=== PATIENT | female | born 1945 | race Caucasian/White ===

== ENCOUNTER 2017-12-22 16:38 | Observation (INO) ==
[2017-12-22] MEDS ORDERED: ONDANSETRON 4 MG/2 ML VIAL IV ONE (16:57)
[2017-12-22] MEDS ORDERED: PROMETHAZINE 25 MG/ML VIAL IV ONE (17:46)
[2017-12-22] MEDS ORDERED: 0.9 % SODIUM CHLORIDE 1,000 ML IV ONE ×2 (17:47→19:05)
--- NOTE | 2017-12-22 17:59 | Emergency Department Note ---
Nausea/Vomiting/Diarrhea HPI - General Chief complaint: Nausea/Vomiting/Diarrhea Stated complaint: vomiting x 2 weeks Time Seen by Provider: 12/22/17 16:49 Source: patient Mode of arrival: ambulatory Limitations: no limitations - History of Present Illness HPI Narrative: 72-year-old female who has had nausea vomiting for the last 2 weeks since her stitcher set up operator automatic put her on chlorthalidone and increased her lisinopril to 40 mg daily. Denies any fever but she has had low blood pressure. Was down to 70 systolic and so her PCP sent her to the ER. She does report losing weight and some shortness of breath. The shortness of breath is not really new though- history of asthma/COPD for which she sees Dr. Mckeon. She has been urinating however has not urinated today She has a significant GI history for which she sees Christy Yadav and Dr. Mccormack. Also rheumatoid history - Related Data Home Medications Medication Instructions Recorded Confirmed ibuprofen 800 mg tablet 800 mg PO PRN PRN tab 09/19/14 12/01/17 fexofenadine 180 mg tablet 180 mg PO QDAY 04/20/17 12/01/17 lisinopril 20 mg tablet 20 mg PO QDAY 04/28/17 12/01/17 Pantoprazole [Protonix] 40 mg PO QAMAC 06/02/17 12/01/17 Previous Rx's Medication Instructions Recorded levothyroxine 100 mcg tablet 100 mcg PO QDAY 90 Days #90 tab 09/25/14 Advair Diskus 250 mcg-50 mcg/dose 1 inh INHALATION Q12H #60 each NS 04/28/17 powder for inhalation albuterol sulfate HFA 90 2 puff INHALATION Q6H #18 g 04/28/17 mcg/actuation aerosol inhaler oxyCODONE HCL [Roxicodone] 5 mg PO Q4HP PRN #10 tab 10/17/17 Allergies Allergy/AdvReac Type Severity Reaction Status Date / Time acetaminophen Allergy Severe Anaphylaxis Verified 12/22/17 16:45 insulin detemir Allergy Intermediate rash Verified 12/22/17 16:45 [From Levemir] morphine Allergy Intermediate Vomiting Verified 12/22/17 16:45 Naloxone [From TALWIN NX] Allergy Intermediate Unknown Verified 12/22/17 16:45 pentazocine [From TALWIN NX] Allergy Intermediate Unknown Verified 12/22/17 16: 45 metformin AdvReac Severe Diarrhea Verified 12/22/17 16:45 methotrexate AdvReac Intermediate nausea Verified 12/22/17 16:45 From DEMEROL Allergy Severe Vomiting Uncoded 12/01/17 11:10 Review of Systems All systems ED: reviewed and negative except as stated. Past Medical History - Past Medical History Attestation: Yes: The following information was validated with the patient. [facility] Narrative: Medical History (Last Reviewed 12/01/17 @ 11:35 by Scott Galeana MD) Back pain (Acute) Polyarthralgia (Acute) Encounter for long-term (current) use of high-risk medication (Acute) Nocturnal hypoxia (Chronic) Poor compliance with medication (Chronic) Sinusitis (Chronic) Shortness of breath (Chronic) Cardiomegaly (Chronic) Hypothyroidism (Chronic) Seasonal allergies (Chronic) Cough (Acute) Iron deficiency anemia (Chronic) Dietary vitamin B12 deficiency anemia (Chronic) Fibromyalgia (Acute) Encounter for long-term (current) use of other high-risk medications (Chronic) Hypertension (Chronic) Hyperlipidemia (Chronic) Spinal stenosis (Chronic) Rheumatoid arthritis (Acute) Osteoporosis (Chronic) Osteoarthritis (Acute) Insomnia (Chronic) Acquired hypothyroidism (Chronic) Fatigue (Chronic) Type 2 diabetes mellitus (Chronic) Excessive daytime sleepiness (Chronic) Colon polyp (Chronic 01/12/12) Chronic obstructive pulmonary disease (Chronic) Asthma (Chronic) Acid reflux (Chronic) Abnormal esophagram (Chronic) Dysphagia (Chronic) Abscess of cellulitis of buttock (Inactive 03/26/14) Chest pain on exertion (Inactive) Chronic musculoskeletal pain (Inactive) Closed fracture of left lower leg (Inactive) Dysfunctional gallbladder (Inactive) Heart disease (Inactive) Hypoglycemia (Inactive) Necrosis, aseptic, of bone (Inactive) Stenosis of artery (Inactive) Tobacco use (Inactive) Past Surgical History (Last Reviewed 12/01/17 @ 11:35 by Scott Galeana MD) History of cholecystectomy (Chronic ~2001) History of esophagogastroduodenoscopy (EGD) (Chronic) History of hysterectomy (Chronic) History of left shoulder replacement (Chronic 07/18/09) History of orthopedic surgery (Chronic ~1995) History of right hip replacement (Chronic ~1996) History of shoulder surgery (Chronic ~2011) History of surgery (Chronic) History of surgery (Chronic ~10/2015) History of total right knee replacement (Chronic ~2004) S/P wrist surgery (Chronic) Status post left foot surgery (Chronic ~12/2016) History of carpal tunnel release (Inactive) History of cholecystectomy (Inactive) History of colonoscopy (Inactive) History of drainage of abscess (Inactive) History of esophagogastroduodenoscopy (Inactive) History of hysterectomy (Inactive) History of oophorectomy (Inactive) History of open reduction and internal fixation (ORIF) procedure (Inactive) History of right hip replacement (Inactive) History of right knee joint replacement (Inactive) History of shoulder surgery (Inactive) Family History (Last Reviewed 12/01/17 @ 11:35 by Scott Galeana MD) Grandmother Family history of arthritis Father Myocardial Infarction Hypertension Diabetes Mother Malignant neoplasm of ovary Uterine cancer Hypothyroidism Asthma Family/Other Celiac disease Thyroid disorder Daughter MVA (motor vehicle accident) Son Arthritis Grandson Drug addiction Medical history: Reports: DM Psychiatric history: Reports: no psych history LABORER HOISTING history: Reports: non-contributory Surgical history ED: Reports: non-contributory - Social History smoking status: Former smoker Physical Exam Overweight female no acute distress resting comfortably able to answer questions appropriately. Normocephalic atraumatic. Conjunctive are clear sclerae nonicteric. No nasal discharge or congestion. Oropharynx pink with dry buccal mucosa. Neck is supple without lymphadenopathy or thyromegaly. No carotid bruit. Heart is regular rate and rhythm no murmur appreciated. Lungs are clear to auscultation bilaterally without wheezes rales rhonchi or respiratory distress. Abdomen is soft nontender nondistended. No peritoneal signs or guarding. No pedal edema. +2 radial pulse. Alert oriented Limitations: no limitations Course Vital Signs Pulse Rate 70 12/22/17 16:39 Respiratory Rate 16 12/22/17 16:39 Blood Pressure 102/67 12/22/17 16:39 Pulse Oximetry (%) 94 12/22/17 16:39 Pulse Rate 64 12/22/17 17:26 Respiratory Rate 12 12/22/17 17:26 Blood Pressure 95/45 12/22/17 17:17 Pulse Oximetry (%) 97 12/22/17 17:26 Nausea/Vomiting/Diarrhea - Lab Data Lab results reviewed: Yes I reviewed the patient's lab results. Result diagrams: 12/22/17 17:05 12/22/17 17:05 Lab Results 12/22/17 12/22/17 Range/Units 17:05 17:05 WBC 9.7 (4.5-11.0) K/mcL RBC 4.60 (4.00-5.20) M/mcL Hgb 12.9 (12.0-15.0) g/dL Hct 39.1 (36.0-48.0) % POC Hct 43.0 (36.0-48.0) % MCV 84.9 (80.0-100.0) fL MCH 28.0 (26.0-34.0) pg MCHC 33.0 (31.0-36.0) g/dL RDW 15.2 H (11.5-14.5) % Plt Count 449 H (140-440) K/mcL MPV 8.7 (7.4-10.4) fL Gran % 58.8 (38.0-78.0) % Lymph % (Auto) 29.5 (15.5-49.0) % [place] % (Auto) 9.4 (1.0-12.0) % Eos % (Auto) 1.8 (0.0-7.0) % Baso % (Auto) 0.5 (0.0-2.0) % Gran # 5.7 (1.8-8.0) K/mcL Lymph # (Auto) 2.8 (1.5-4.8) K/mcL [place] # (Auto) 0.9 (0.1-0.9) K/mcL Eos # (Auto) 0.2 (0.0-0.7) K/mcL Baso # (Auto) 0.1 (0.0-0.3) K/mcL POC Sodium 135 (133-145) mmol/L Sodium 133 (133-145) mmol/L POC Potassium 4.1 (3.3-5.1) mmol/L Potassium 4.2 (3.3-5.1) mmol/L POC Chloride 99 (96-108) mmol/L Chloride 92 L (96-108) mmol/L Carbon Dioxide 20 L (22-30) mmol/L POC Total CO2 22 (22-30) mmol/L Anion Gap 21.0 H (8-16) POC BUN 47 H (8-23) mg/dl BUN 51 H (8-23) mg/dl Creatinine 2.8 H (0.6-1.1) mg/dl POC Creatinine 2.9 H (0.6-1.1) mg/dl GFR Calculation 16 Glucose 252 H (70-105) mg/dL POC Glucose 258 H (70-105) mg/dL Calcium 9.2 (8.6-10.4) mg/dl POC WB Ioniz Calcium 1.09 L (1.16-1.32) mmol/L Total Bilirubin 0.3 (0.0-1.0) mg/dL AST 16 (0-37) U/l ALT 14 (0-40) U/l Alkaline Phosphatase 108 (39-117) U/L Total Protein 7.7 (5.9-8.4) gm/dL Albumin 4.1 (3.2-5.2) gm/dL Globulin 3.6 (2.2-3.7) gm/dL Albumin/Globulin Ratio 1.1 (1.0-2.3) Urinalysis [id number] dipstick shows moderate leukocytes trace blood specific gravity 1.030 - Radiology Data Radiology results reviewed: Yes I reviewed the patient's radiology results. Bedside bladder scan showed 300 mL urine and patient was not feeling the need to urinate Abdominal x-ray shows nonspecific bowel gas pattern, negative for acute findings - EKG Data EKG attestation: Yes I reviewed and interpreted this EKG. EKG results narrative: EKG shows a rate of 65 sinus rhythm long MD or first-degree block. I do see a widened QRS in the inferior leads possible conduction delay Disposition Pt seen by SPINNING OPERATOR/PA only: No Clinical Impression: Drug-induced nausea and vomiting, Acute kidney injury, Dehydration Summary: Concern for drug-induced nausea vomiting with chlorthalidone. Ordered workup with laboratory and x-ray of the abdomen. Fluid started along with antiemetics POC labs show elevated creatinine (0.5 increased to 2.9 with anuria today) concern for increased lisinopril causing kidney injury in addition to prerenal causes. She continued to have nausea vomiting although just a small amount. Given dose of Phenergan Continued IV fluids. Urinalysis dipstick showed moderate leukocytes and increased concentration consistent with dehydration specific gravity 1.[address] Jitendra Zabala, hospitalist who agreed to evaluate the patient for admission Disposition: Xfer As Inpt ([facility]) Condition: Fair Referrals: Janina Soto ARNP [Primary Care Provider] -
--- NOTE | 2017-12-22 18:26 | XRay Report ---
CLINICAL INFORMATION: nausea and vomting COMPARISON: None. FINDINGS: There are scattered air-fluid levels within nondilated colon in the right midabdomen. Moderate stool present within the sigmoid. No free air or soft tissue mass. IMPRESSION: Nonspecific stool gas pattern most compatible with atypical ileus Interpreted and Authenticated by: Christopher Mishra 12/22/17
[2017-12-22 18:27] LABS: Basophils # (Auto) 0.1 K/mcL (0.0-0.3); Basophils % (Auto) 0.5 % (0.0-2.0); Eosinophils # (Auto) 0.2 K/mcL (0.0-0.7); Eosinophils % (Auto) 1.8 % (0.0-7.0); Granulocytes % (Auto) 58.8 % (38.0-78.0); Lymphocytes # (Auto) 2.8 K/mcL (1.5-4.8); Lymphocytes % (Auto) 29.5 % (15.5-49.0); Mean Cell Volume 84.9 fL (80.0-100.0); Monocytes # (Auto) 0.9 K/mcL (0.1-0.9); Monocytes % (Auto) 9.4 % (1.0-12.0); Platelet Count 449 K/mcL (140-440); Red Cell Distribution Width 15.2 % (11.5-14.5)
[2017-12-22 18:48] LABS: ALT/SGPT 14 U/l (0-40); Albumin 4.1 gm/dL (3.2-5.2); Albumin/Globulin Ratio 1.1 (1.0-2.3); Alkaline Phosphatase 108 U/L (39-117); Blood Urea Nitrogen 51 mg/dl (8-23)
[2017-12-22 20:01] LABS: Appearance,Urine CLOUDY; Bacteria,Urine FEW /hpf (0); Bilirubin,Urine NEG (NEG); Color,Urine YELLOW; Glucose,Urine (UA) NEGATIVE (NEG); Leukocyte Esterase,Urine 500 /uL (NEG); Mucus,Urine MANY /hpf (0); Protein,Urine 30 mg/dL (NEG); Specific Gravity,Urine 1.019 (1.000-1.035); Urine Amorphous Crystals FEW /hpf (0); Urine Blood 0.03 mg/dL (<0.03); Urine Budding Yeast FEW /hpf (0); Urine Hyaline Cast 124 /lpf (0-2); Urine RBC 18 /hpf (0-1); Urine Squamous Epithelial Cell 10 /hpf (0-4); Urine Transitional Epi Cells 5 /hpf (0-2); Urine WBC 74 /hpf (0-4)
--- NOTE | 2017-12-22 21:03 | Internal Med History&Physical ---
Medical - H&P: HPI Patient information: Note initiated : 12/22/17 at 8:59 pm Service Date, if different from initiated Date: [] Patient: Julia Noriega 72 y/o F admitted on for vomiting x 2 weeks. Chief Complaint: [] History of present illness: Ms. Noriega is a 72 year old F had history of bilateral aortoiliac stents. She sees the director statistical programming who placed those stents for her blood pressure and two weeks ago was increased lisinopril and started on chlorthalidone. The patient was immediately symptomatic with diarrhea and nausea. She called her director statistical programming and office gave her an appointment for a month later. The pt has been having diarrhea 3 - 4 times a day and vomiting now with dizzyness and feels light headed. Came to EMD and found to have TRACI and dehydration. The pt was given 2 liters of fluid and referred for admission regarding acute kidney injury. Pt says she is feeling better now. Was sleeping. no longer vomiting or nauseated. - Constitutional Constitutional: Present: as per HPI, weight loss. Absent: increased appetite - Cardiovascular Cardiovascular: Present: lightheadedness. Absent: chest pain, leg edema - Respiratory Respiratory: Absent: cough - Gastrointestinal Gastrointestinal: Present: change in bowel habits, diarrhea, loose stools, vomiting - Musculoskeletal Musculoskeletal: Present: muscle cramps, muscle weakness, myalgias Medical - H&P: Meds Home Medications Medication Instructions Recorded Confirmed Type ibuprofen 800 mg tablet 800 mg PO PRN PRN tab 09/19/14 12/01/17 History levothyroxine 100 mcg tablet 100 mcg PO QDAY 90 Days #90 tab 09/25/14 12/01/17 Rx fexofenadine 180 mg tablet 180 mg PO QDAY 04/20/17 12/01/17 History Advair Diskus 250 mcg-50 mcg/dose 1 inh INHALATION Q12H #60 each NS 04/28/1702/07 Rx powder for inhalation albuterol sulfate HFA 90 2 puff INHALATION Q6H #18 g 04/28/17 12/01/17 Rx mcg/actuation aerosol inhaler lisinopril 20 mg tablet 20 mg PO QDAY 04/28/17 12/01/17 History Pantoprazole [Protonix] 40 mg PO QAMAC 06/02/17 12/01/17 History oxyCODONE HCL [Roxicodone] 5 mg PO Q4HP PRN #10 tab 10/17/17 12/01/17 Rx Allergies Allergy/AdvReac Type Severity Reaction Status Date / Time acetaminophen Allergy Severe Anaphylaxis Verified 12/22/17 16:45 insulin detemir Allergy Intermediate rash Verified 12/22/17 16:45 [From Levemir] morphine Allergy Intermediate Vomiting Verified 12/22/17 16:45 Naloxone [From TALWIN NX] Allergy Intermediate Unknown Verified 12/22/17 16:45 pentazocine [From TALWIN NX] Allergy Intermediate Unknown Verified 12/22/17 16: 45 metformin AdvReac Severe Diarrhea Verified 12/22/17 16:45 methotrexate AdvReac Intermediate nausea Verified 12/22/17 16:45 From DEMEROL Allergy Severe Vomiting Uncoded 12/01/17 11:10 Medical - H&P: Exam - Constitutional Vitals: Pulse Resp BP Pulse Ox 64 20 129/78 97 12/22/17 17:26 12/22/17 20:11 12/22/17 19:31 12/22/17 17:26 General appearance: average body habitus, cooperative, no acute distress - Head Head exam: Present: normal inspection - Eye Eye exam: Absent: conjunctival injection, scleral icterus Pupils: Absent: unequal - Neck Neck exam: Present: full ROM, normal inspection - Expanded Neck Exam Neck exam: Absent: carotid bruit, tenderness - Respiratory Respiratory exam: Present: normal respiratory exam - Cardiovascular Cardiovascular exam: Present: normal rate and rhythm - GI/Abdominal GI/Abdominal exam: Present: normal bowel sounds, soft. Absent: distended, rebound, tenderness - Neurological Exam Neurological exam: Present: alert, oriented X3 - Expanded Neurological Exam Patient oriented to: Present: person, place, time Speech: Present: fluid speech - Psychiatric Psychiatric exam: Present: normal affect, normal mood. Absent: agitated - Expanded Skin Exam Type of lesion: Absent: rash Medical - H&P: Reslt - Labs CBC & Chem 7: 12/22/17 17:05 12/22/17 17:05 Labs: Short CBC 12/22/17 Range/Units 17:05 WBC 9.7 (4.5-11.0) K/mcL Hgb 12.9 (12.0-15.0) g/dL Hct 39.1 (36.0-48.0) % Plt Count 449 H (140-440) K/mcL BMP 12/22/17 17:05 Sodium 133 Potassium 4.2 Chloride 92 L Carbon Dioxide 20 L BUN 51 H Creatinine 2.8 H Glucose 252 H Calcium 9.2 Liver Function 12/22/17 Range/Units 17:05 Total Bilirubin 0.3 (0.0-1.0) mg/dL AST 16 (0-37) U/l ALT 14 (0-40) U/l Alkaline Phosphatase 108 (39-117) U/L Albumin 4.1 (3.2-5.2) gm/dL Urine 12/22/17 Range/Units 18:25 Urine Color Yellow Urine Appearance Cloudy Urine pH 5.0 (5.0-9.0) Ur Specific [place] 1.019 (1.000-1.035) Urine Protein 30 A (NEG) mg/dL Urine Glucose (UA) Negative (NEG) mg/dL Medical - H&P: A/P (1) Acute kidney injury Current visit: Yes Status: Acute stop chlorthalidone. Hold lisinopril. Stop Ibuprofen. hydrate and recheck renal function in the AM (2) Drug-induced nausea and vomiting Current visit: Yes Status: Acute stop chlorthalidone. intolerant to this medication. (3) Dehydration Current visit: Yes Status: Acute hydrate. likely avoid diuretic for her BP unless she develops CHF. Largest offender was the diarrhea and vomiting but will look at amlodipine or betablocker with her ru once hydrated. - Narrative A/P Narrative: 55 mins spent in evaluation and coordination of care for this patient today
[2017-12-22] MEDS ORDERED: IOPAMIDOL 100 ML BOTTLE IV ONE (22:17)
[2017-12-22] MEDS ORDERED: 0.9 % SODIUM CHLORIDE 10 ML SYRINGE IV SCH (22:33)
[2017-12-22] MEDS: LACTATED RINGERS 1,000 ML IV SCH (22:36)
[2017-12-22] MEDS: 0.9 % SODIUM CHLORIDE 10 ML SYRINGE IV SCH (22:37)
[2017-12-22] MEDS: HEPARIN 5,000 UNIT/ML VIAL SQ SCH (23:31)
[2017-12-22] MEDS: INSULIN GLARGINE, HUMAN 1 UNIT/0.01 ML SQ SCH (23:41)
[2017-12-22] MEDS ORDERED: INSULIN GLARGINE, HUMAN 1 UNIT/0.01 ML SQ ONE (23:46)
[2017-12-23] MEDS: LACTATED RINGERS 1,000 ML IV SCH ×7 (02:30→20:33)
[2017-12-23] MEDS: 0.9 % SODIUM CHLORIDE 10 ML SYRINGE IV SCH ×3 (05:33→22:49)
[2017-12-23] MEDS: HEPARIN 5,000 UNIT/ML VIAL SQ SCH ×2 (08:14→22:47)
[2017-12-23] MEDS: ONDANSETRON 4 MG/2 ML VIAL IV PRN (09:27)
[2017-12-23] MEDS ORDERED: oxyCODONE HCL 5 MG TABLET PO PRN (10:00)
[2017-12-23 10:24] LABS: Blood Urea Nitrogen 28 mg/dl (8-23)
--- NOTE | 2017-12-23 13:51 | Internal Med Progress Note ---
Medical - PN: Subj Patient information: Note initiated : 12/23/17 at 1:49 pm Service Date, if different from initiated Date: [] Patient: Julia Noriega 72 y/o F admitted on 12/22/17 for Vomiting x 2 weeks. Chief Complaint: [Overnight still having diarrhea and some nausea but no vomiting patient states she ate roast beef and broccoli but shortly after she had loose watery stool. She has had her gallbladder removed but appendix is still intact.] - Constitutional Vitals: Vital Signs Temp Pulse Resp BP Pulse Ox 98.4 F 71 20 102/64 94 12/23/17 11:37 12/23/17 03:27 12/23/17 11:37 12/23/17 11:37 12/23/17 11:37 Period Temp Pulse Resp BP Sys/Tse Pulse Ox Last 24 Hr 97.4 F-98.4 F 64-76 12-24 88-132/45-107 92-97 Intake and Output 12/22/17 12/23/17 12/23/17 21:59 05:59 13:59 Intake Total 1000 / 1000 2175 / 2175 1999 Output Total 1050 / 1050 1850 / 1850 Balance 1000 / 1000 1125 / 1125 150 / 150 Weight 177 lb 174 lb 8 oz Intake & Output: Intake & Output 12/22/17 12/23/17 12/23/17 21:59 05:59 13:59 Intake Total 1000 / 1000 2175 / 2175 1999 Output Total 1050 / 1050 1850 / 1850 Balance 1000 / 1000 1125 / 1125 150 / 150 Weight 177 lb 174 lb 8 oz Intake: IV 1000 / 1000 1974 / 1974 Sodium Chloride 0.9% 1,000 ml @ 1000 / 1000 Wide Open IV BOLUS ONE Rx#: [id number] Lactated Ringers 1,000 ml @ 250 975 / 975 1999 / 1999 mls/hr IV .Q4H MARIA DOLORES Rx#: [id number] Oral 200 / 200 Output: Void Amount 1050 / 1050 1350 / 1350 Urine/Stool Mix 500 / 500 Other: Meal Lunch Percent of Meal Consumed 75% Urine Appearance Clear Urine Color Straw Urine Odor Normal Stool Size Moderate Stool Color Brown Stool Consistency Liquid - Respiratory Respiratory exam: Present: normal respiratory exam - Cardiovascular Cardiovascular exam: Present: normal rate and rhythm - GI/Abdominal GI/Abdominal exam: Present: normal bowel sounds, soft, tenderness. Absent: distended, firm, rebound, rigid Additional comments: Right lower quadrant - Extremities Exam Extremities exam: Present: normal inspection - Psychiatric Psychiatric exam: Present: normal affect, normal mood Medical - PN: Obj Da - Labs CBC & Chem 7: 12/22/17 17:05 12/23/17 09:11 Labs: Abnormal Lab Results 12/23/17 12/22/17 12/22/17 09:11 18:25 17:05 RDW Plt Count Chloride 92 L Carbon Dioxide 20 L Anion Gap 21.0 H POC BUN 47 H BUN 28 H 51 H Creatinine 2.8 H POC Creatinine 2.9 H Glucose 152 H 252 H POC Glucose 258 H Calcium 8.3 L POC WB Ioniz Calcium 1.09 L Urine Protein 30 A Urine Occult Blood 0.03 A Urine Urobilinogen 4.0 A Ur Leukocyte Esterase 500 A Urine RBC 18 H Urine WBC 74 H Ur Squamous Epith Cells 10 H Ur Transition Epith Cell 5 H Amorphous Crystals Few A Urine Bacteria Few A Hyaline Casts 124 H Urine Mucus Many A Urine Yeast (Budding) Few A 12/22/17 17:05 RDW 15.2 H Plt Count 449 H Chloride Carbon Dioxide Anion Gap POC BUN BUN Creatinine POC Creatinine Glucose POC Glucose Calcium POC WB Ioniz Calcium Urine Protein Urine Occult Blood Urine Urobilinogen Ur Leukocyte Esterase Urine RBC Urine WBC Ur Squamous Epith Cells Ur Transition Epith Cell Amorphous Crystals Urine Bacteria Hyaline Casts Urine Mucus Urine Yeast (Budding) Meds: Medications Atorvastatin Calcium (Lipitor) 10 mg PO HS [facility] Heparin Sodium (Porcine) (Heparin) 5,000 unit SQ Q12 [facility] Last Admin: 12/23/17 08:14 Dose: 5,000 unit Lactated Ringer's (Lactated Ringers) 1,000 mls @ 250 mls/hr IV .Q4H [facility] Last Admin: 12/23/17 10:43 Dose: 250 mls/hr Insulin Glargine (Lantus) 30 unit SQ HS [facility] Last Admin: 12/22/17 23:41 Dose: Not Given Levothyroxine Sodium (Synthroid) 100 mcg PO ACB [facility] Ondansetron HCl (Zofran) 4 mg IV Q6HP PRN PRN Reason: Nausea And Vomiting Last Admin: 12/23/17 09:27 Dose: 4 mg Oxycodone HCl (Roxicodone) 10 mg PO Q4HP PRN PRN Reason: Pain Pantoprazole Sodium (Protonix) 40 mg PO QAMAC MARIA DOLORES Sodium Chloride (Saline Flush) 10 ml IV Q8 MARIA DOLORES Last Admin: 12/23/17 13:26 Dose: Not Given Medical - PN: A/P - Time Spent With Patient Total time spent is greater than 50% in coordination of care (as documented) at patient's floor/unit and/or counseling patient: Greater than 35 minutes (1) Acute kidney injury Status: Acute Assessment and plan: Resolved but still with elevated BUN/creatinine ratio consistent with dehydration skin turgor still diminished continue with fluid hydration Current Visit: Yes (2) Drug-induced nausea and vomiting Status: Acute Assessment and plan: Improved but still with right lower quadrant tenderness. Given the point tenderness will evaluate the appendix with CT of the abdomen and pelvis with contrast. This will also look for colitis Current Visit: Yes (3) Dehydration Status: Acute Assessment and plan: As above Current Visit: Yes Medical - PN: Qual - VTE Deep Vein Thrombosis/Pulmonary Embolism Present on Admission: No
--- NOTE | 2017-12-23 15:36 | Cat Scan Report ---
CLINICAL INFORMATION: Right lower quadrant pain and diarrhea COMPARISON: Abdomen and pelvic CT from 1.5 years ago - 06/05/2016 TECHNIQUE: Following enteric contrast, 80 cc of Isovue-300 were injected intravenously, and 60 seconds later, 0.625 mm helical slices were obtained from the mid heart through the subtrochanteric regions. Following reconstruction, 2.5 mm sagittal, coronal and axial reformatted images were processed and reviewed at bone, lung and soft tissue windows. Five minutes later, 0.625 mm helical slices were obtained from the mid heart through the kidneys and viewed at soft tissue windows.The exam was performed using radiation dose optimization techniques including, but not limited to, automated exposure control, adjustment of the mA and/or kV according to patient size and use of iterative reconstruction technique. FINDINGS: Lung bases show only scattered scarring and evidence for chronic orchitis. No infiltrates or effusions. The visualized heart is grossly normal. Images through the abdomen show the gallbladder is surgically absent. Intrahepatic and common bile ducts are normal caliber CBD is 6 mm. The liver, both kidneys, adrenal glands, spleen, pancreas are normal in size, configuration and attenuation without focal lesion. The abdominal aorta is normal in diameter with moderate calcific plaque. The celiac, SMA and KJ and renal arteries contain atherosclerotic plaque. There is no free air, free fluid or adenopathy. Scattered diverticuli seen within the sigmoid colon no evidence of diverticulitis. The remainder of the colon, appendix, small bowel and stomach are normal. Images through the pelvis show urinary bladder to be unremarkable. Hysterectomy last oophorectomy changes are noted. Rectal hip prostheses is anatomically aligned without evidence of loosening or infection. No significant osseous abnormality. There is a 11 mm subdermal fluid collections with associated gas in the anterior abdominal wall of the right upper quadrant which is new. It is less than 5 mm below the skin surface. IMPRESSION: No evidence of appendicitis. No cause identified for right lower quadrant pain Sigmoid diverticulosis, but no evidence of diverticulitis. 11 mm subdermal fluid collection with minimal associated gas in the right upper quadrant abdomen. It is less than 5 mm below the skin surface. It may represent a small infection. Small hiatal hernia - stable Interpreted and Authenticated by: Christopher Mishra 12/23/17
[2017-12-23] MEDS ORDERED: DEXTROSE 50% 50 ML VIAL IV PRN (18:23)
[2017-12-23] MEDS ORDERED: DEXTROSE 31 GM ORAL.SUSP PO PRN (18:23)
[2017-12-23] MEDS ORDERED: ATORVASTATIN 20 MG TABLET PO SCH (21:00)
[2017-12-23] MEDS: INSULIN LISPRO 1 UNIT/0.01 ML UNIT SQ SCH (22:19)
[2017-12-23] MEDS: INSULIN GLARGINE, HUMAN 1 UNIT/0.01 ML SQ SCH (22:49)
[2017-12-24] MEDS: LACTATED RINGERS 1,000 ML IV SCH ×3 (00:34→08:47)
[2017-12-24] MEDS: 0.9 % SODIUM CHLORIDE 10 ML SYRINGE IV SCH (05:28)
[2017-12-24] MEDS: ONDANSETRON 4 MG/2 ML VIAL IV PRN (05:50)
[2017-12-24] MEDS: INSULIN LISPRO 1 UNIT/0.01 ML UNIT SQ SCH ×2 (07:06→11:21)
[2017-12-24] MEDS ORDERED: LEVOTHYROXINE 100 MCG TABLET PO SCH (07:30)
[2017-12-24] MEDS ORDERED: PANTOPRAZOLE 40 MG TABLET PO SCH (07:30)
[2017-12-24] MEDS: HEPARIN 5,000 UNIT/ML VIAL SQ SCH (08:41)
[2017-12-24] MEDS ORDERED: PHENobarb/HYOSCY/ATROPINE/SCOP 1 DOSE BOTTLE PO ONE (09:51)
[2017-12-24] MEDS ORDERED: MAG HYDROX/AL HYDROX/SIMETH 30 ML ORAL.SUSP PO ONE (09:52)
--- NOTE | 2017-12-24 11:47 | Discharge Summary ---
<Arturo Newton - Last Filed: 12/24/17 11:52> Medical - DS: Prov Patient information: Note initiated : 12/24/17 at 11:45 am Service Date, if different from initiated Date: [] Patient: Julia Noriega 72 y/o F admitted on 12/22/17 for Vomiting x 2 weeks. Chief Complaint: [] Date of admission: 12/22/17 22:16 Discharge date: 12/24/17 Primary care physician: Janina Soto Admitting clinician: Heraclio Zabala Attending physician on admission: Heraclio Zabala Consults: 12/22/17 Consult to Physician [CONS] Stat Comment: Consulting Provider: Heraclio Zabala Reason For Exam: Physician to Consult Attending physician on discharge: Heraclio Zabala Discharging clinician: Heraclio Zabala Medical - DS: Meds - Discharge Medications Prescriptions: amLODIPine [Norvasc] 2.5 mg PO DAILY #30 tab Mag Hydrox/Al Hydrox/Simeth [Maalox] 30 ml PO Q4-6HP PRN #355 ml PRN Reason: heartburn and epigastric pain Pantoprazole [Protonix] 40 mg PO QAMAC #60 tab PHENobarb/HYOSCY/ATROPINE/SCOP [Gi Cocktail] 0 dose PO Q4HP PRN #3 bottle PRN Reason: epigastric pain Active and Home Medications: Home Medications ibuprofen 800 mg tablet 800 mg PO PRN PRN tab 09/19/14 [History Confirmed 12/23 Last Taken Unknown] fexofenadine 180 mg tablet 180 mg PO QDAY 04/20/17 [History Confirmed 12/23/17 Last Taken Unknown] Advair Diskus 250 mcg-50 mcg/dose powder for inhalation 1 inh INHALATION Q12H # 60 each NS 04/28/17 [Rx Confirmed 12/22/17 Last Taken Unknown] albuterol sulfate HFA 90 mcg/actuation aerosol inhaler 2 puff INHALATION Q6H # 18 g 04/28/17 [Rx Confirmed 12/22/17 Last Taken Unknown] Pantoprazole [Protonix] 40 mg PO QAMAC 06/02/17 [History Confirmed 12/22/17 Last Taken Unknown] Chlorthalidone [Hygroton] 25 mg PO DAILY 12/22/17 [History Confirmed 12/23/17 Last Taken Unknown] Insulin Glargine, Human [Lantus] 30 unit SQ HS 12/22/17 [History Confirmed 12/22 Last Taken 12/21/17 23:30] Levothyroxine Sodium [Levoxyl] 100 mcg PO QDAY 12/22/17 [History Confirmed 12/23 Last Taken Unknown] Atorvastatin [Lipitor] 10 mg PO HS 12/23/17 [History Confirmed 12/23/17 Last Taken Unknown] Lisinopril [Zestril] 40 mg PO DAILY 12/23/17 [History Confirmed 12/23/17 Last Taken Unknown] Losartan [Cozaar] 50 mg PO BID 12/23/17 [History Confirmed 12/23/17 Last Taken 12/22/17] oxyCODONE HCL [Oxycodone HCl] 1 tab PO Q4HP PRN 12/23/17 [History Confirmed 06/07 Last Taken Unknown] Medical - DS: Hosp Hospital course: Mr. Noriega is a 72 year old F who came to the hospital dehydrated following days of N/V and diarrhea. Lead to acute TRACI with elevated BUN and Creatinine. Patient states that this started when she was put on clorthalidone by her dogger. Patient called dogger who said to come in in 2 weeks, but patient continued her meds. Drug was stopped here and was rehydrated. CT of abdomen showed no damage to kidneys. Patient also reported RUQ and RLQ tenderness. CT showed several areas of diverticulosis, but no inflammation. Also, a RUQ area of fluid 5mm beneath the skin. Most like due to Lovenox injection. After GI cocktail, pain and N/V improved. Patient will follow up with GI for continued treatment of chronic GERD. Patient also reports CHENEY, but has not had asthma meds while here. Will have RT visit here before discharge. Will follow up with PCP Discharge diagnosis: TRACI Reason for admission: Nausea, vomiting and diarrhea Pertinent studies/significant findings: dehydration with increased BUN and Cr Complications: none - Time Spent with Patient Total time spent providing and/or coordinating discharge services: Greater than 30 minutes Medical - DS: Exam - Constitutional Vitals: Vital Signs Temp Pulse Resp BP Pulse Ox 12/24/17 11:14 98.1 F 64 20 155/69 97 12/24/17 06:56 97 12/24/17 06:45 97.5 F 74 17 146/69 86 L 12/24/17 04:00 97.9 F 70 20 109/68 90 12/23/17 23:52 97.8 F 68 22 125/59 92 12/23/17 20:00 98.1 F 70 22 111/75 94 12/23/17 16:00 97.6 F 20 114/49 96 Intake and Output 12/23/17 12/24/17 12/24/17 21:59 05:59 13:59 Intake Total 2300 / 2300 2640 / 2640 1000 / 1000 Output Total 1550 / 1550 700 / 700 1300 / 1300 Balance 750 / 750 1940 / 1940 -300 / -300 Intake: IV 1999 1000 / 1000 Lactated Ringers 1,000 ml @ 250 1999 1000 / 1000 mls/hr IV [facility] Rx#: [id number] Oral 300 / 300 640 / 640 Output: Void Amount 1450 / 1450 700 / 700 1300 / 1300 Urine/Stool Mix 100 / 100 Other: Meal Dinner [place] Percent of Meal Consumed 100% 100% Feeding Ability Independent Urine Appearance Clear Urine Color Pale Urine Odor Normal Stool Size Small Stool Color Brown Stool Consistency Liquid Weight 175 lb - Respiratory Respiratory exam: Present: normal respiratory exam, CTAB (shallow breaths). Absent: rales, rhonchi, stridor, wheezes - Cardiovascular Cardiovascular exam: Present: normal rate and rhythm, RRR. Absent: diastolic murmur, gallop, rubs, systolic murmur - GI/Abdominal GI/Abdominal exam: Present: normal bowel sounds, soft. Absent: distended, guarding, pulsatile mass, rigid, tenderness - Extremities Exam Extremities exam: Present: pedal edema (trace), Foot pink and warm - Skin Skin exam: Present: dry, warm Medical - DS: A/P - Patient/Caregiver Discharge Instructions Activity: resume usual activities as tolerated Diet: Regular Diet - Problem Maintenance (1) Acute kidney injury Status: Resolved Comment: Resovled with rehydration (2) Dehydration Status: Resolved Comment: Rehydrated. Advised to avoid diuretics due to N/V (3) Drug-induced nausea and vomiting Status: Resolved Comment: Clorthalidone discontinued - Follow up Plan Follow up with: Janina Soto ARNP [Primary Care Provider] - Disposition: Home, Self-Care Prognosis: Good Rehab Potential: Good Overall status at discharge: patient is back to baseline Medical - DS: Qual - VTE Deep Vein Thrombosis/Pulmonary Embolism Present on Admission: No <Heraclio Zabala - Last Filed: 12/24/17 12:33> Medical - DS: Prov Patient information: Note initiated : 12/24/17 at 12:16 pm Service Date, if different from initiated Date: [] Patient: Julia Noriega 72 y/o F admitted on 12/22/17 for Vomiting x 2 weeks. Chief Complaint: [] Date of admission: 12/22/17 22:16 Primary care physician: Janina Soto Consults: 12/22/17 Consult to Physician [CONS] Stat Comment: Consulting Provider: Heraclio Zabala Reason For Exam: Physician to Consult Medical - DS: Meds - Discharge Medications Active and Home Medications: Home Medications ibuprofen 800 mg tablet 800 mg PO PRN PRN tab 09/19/14 [History Confirmed 12/23 Last Taken Unknown] fexofenadine 180 mg tablet 180 mg PO QDAY 04/20/17 [History Confirmed 12/23/17 Last Taken Unknown] Advair Diskus 250 mcg-50 mcg/dose powder for inhalation 1 inh INHALATION Q12H # 60 each NS 04/28/17 [Rx Confirmed 12/22/17 Last Taken Unknown] albuterol sulfate HFA 90 mcg/actuation aerosol inhaler 2 puff INHALATION Q6H # 18 g 04/28/17 [Rx Confirmed 12/22/17 Last Taken Unknown] Pantoprazole [Protonix] 40 mg PO QAMAC 06/02/17 [History Confirmed 12/22/17 Last Taken Unknown] Chlorthalidone [Hygroton] 25 mg PO DAILY 12/22/17 [History Confirmed 12/23/17 Last Taken Unknown] Insulin Glargine, Human [Lantus] 30 unit SQ HS 12/22/17 [History Confirmed 12/22 Last Taken 12/21/17 23:30] Levothyroxine Sodium [Levoxyl] 100 mcg PO QDAY 12/22/17 [History Confirmed 12/23 Last Taken Unknown] Atorvastatin [Lipitor] 10 mg PO HS 12/23/17 [History Confirmed 12/23/17 Last Taken Unknown] Lisinopril [Zestril] 40 mg PO DAILY 12/23/17 [History Confirmed 12/23/17 Last Taken Unknown] Losartan [Cozaar] 50 mg PO BID 12/23/17 [History Confirmed 12/23/17 Last Taken 12/22/17] oxyCODONE HCL [Oxycodone HCl] 1 tab PO Q4HP PRN 12/23/17 [History Confirmed 06/07 Last Taken Unknown] Medical - DS: Hosp Hospital course: pts epigastric pain significantly improved with GI Cocktail. Nonspecific RLQ pain resolved and CT unremarkable. kidney function normalized but was on JOSE CARLOS and ARB and diuretic which is kidney dependent. Will try amlodipine 2.5 mg daily as alternate to continue with lisinopril. cozaar and chlorthalidone stopped. Secondary discharge diagnosis: GERD and esophageal stricture - Time Spent with Patient Total time spent providing and/or coordinating discharge services: Medical - DS: Exam - Constitutional Vitals: Vital Signs Temp Pulse Resp BP Pulse Ox 12/24/17 11:14 98.1 F 64 20 155/69 97 12/24/17 06:56 97 12/24/17 06:45 97.5 F 74 17 146/69 86 L 12/24/17 04:00 97.9 F 70 20 109/68 90 12/23/17 23:52 97.8 F 68 22 125/59 92 12/23/17 20:00 98.1 F 70 22 111/75 94 12/23/17 16:00 97.6 F 20 114/49 96 Intake and Output 12/23/17 12/24/17 12/24/17 21:59 05:59 13:59 Intake Total 2300 / 2300 2640 / 2640 1000 / 1000 Output Total 1550 / 1550 700 / 700 1300 / 1300 Balance 750 / 750 1940 / 1940 -300 / -300 Intake: IV 1999 / 1999 1000 / 1000 Lactated Ringers 1,000 ml @ 250 1999 / 1999 1999 / 1999 1000 / 1000 mls/hr IV [facility] Rx#: [id number] Oral 300 / 300 640 / 640 Output: Void Amount 1450 / 1450 700 / 700 1300 / 1300 Urine/Stool Mix 100 / 100 Other: Meal Dinner [place] Percent of Meal Consumed 100% 100% Feeding Ability Independent Urine Appearance Clear Urine Color Pale Urine Odor Normal Stool Size Small Stool Color Brown Stool Consistency Liquid Weight 175 lb Medical - DS: Data Procedures and tests throughout hospitalization: ct abdomen and pelvis no acute findings. some air and fluid subQ presumed lovenox injection site diverticulosis without acute inflammation - Imaging and Cardiology CT scan - abdomen Status: image reviewed by me Medical - DS: A/P - Patient/Caregiver Discharge Instructions Diet: Cardiac, Consistent Carbohydrate - Problem Maintenance (1) Acute kidney injury Status: Resolved Comment: Resovled with rehydration (2) Drug-induced nausea and vomiting Status: Resolved Comment: Clorthalidone discontinued (3) Dehydration Status: Resolved Comment: Rehydrated. Advised to avoid diuretics due to N/V (4) Acid reflux Status: Chronic Comment: better with GI cocktail. PPI doubled. Elevate head of bed Qualifiers: Esophagitis presence: with esophagitis Qualified Code(s): K21.0 - Gastro- esophageal reflux disease with esophagitis - Follow up Plan I certify that the patient requires SNF services: No
[2017-12-24] MEDS ORDERED: IPRATROPIUM/ALBUTEROL 3 ML AMPUL.NEB NEB ONE ×2 (12:15→12:31)
== END 2017-12-24 15:05 | disposition home or self-care (01) ==
LOC: ED 16:38 → MEDSUR 16:38
PROVIDERS: ADMIT Internal Medicine; ATTEND Internal Medicine
CPT/HCPCS: 80047; 85014; 87324; 87449; G0378; J1644; J1815; J2405; J2550; J7030; J7120; J7620; J7620-GY; Q9967